=== PATIENT | female | born 1950 | race Caucasian/White ===

== ENCOUNTER → 2016-11-06 | Day surgery (SDC) | payer OTHER, MEDICARE ==
[2016-10-19 13:02] VITALS: Ht 167.6 cm; Wt 105.0 kg
[~2016-11-06] VITALS: Ht 167.6 cm; Wt 105.0 kg
[~2016-11-06] MED LIST: 500ML BSS 0.3ML EPI 1:1000PF IRRIG ONE; ACETAMINOPHEN 325 MG TAB PO PRN; AMVISC PLUS 0.8ML SYRINGE INT OCU ONE; ASPCH81X PO; ATROPINE SULFATE 0.1 MG/ML 5ML SYR IV PRN; BSS FLUSH ONE; EpHEDrine SULFATE INJ 50 MG/ML AMP IV PRN; EpINEphrine INJ 1MG/ML AMP 1 MG/ML AMP ONE; FLUT0.15 INH; LACTATED RINGER'S 1000ML 500 ML IV SCH; LIDOCAINE 3.5% OPH GEL PER APPLICATION CHARGE ONE; LIDOCAINE HCL 1% MPF 2 ML VIAL ONE; METO25TA3 PO; MIDAZOLAM HCL 1 MG/ML 2ML VIAL ONE; OCUCOAT 1 ML SOLN IO ONE; PHENYLEPHRINE HCL 10% OP SOLN PER DROP CHARGE OPL SCH; POVIDONE-IODINE OP SOLN 30 ML BTL ONE; PROPARACAINE 0.5% OP SOLN PER DROP CHARGE OPL SCH; TIMO0.2528 OPB; TOBRAMYCIN/DEXAMETHASONE OPH OINT PER APPLN CHARGE ONE
[2016-11-06] MEDS: PHENYLEPHRINE HCL 2.5% OP SOLN PER DROP CHARGE OPL SCH ×2 (07:02→07:07)
[2016-11-06] MEDS: TROPICAMIDE 1% OP SOLN PER DROP CHARGE OPL SCH ×2 (07:03→07:08)
[2016-11-06] MEDS: CYCLOPENTOLATE HCL 1% OP SOLN PER DROP CHARGE OPL SCH ×2 (07:04→07:09)
[2016-11-06] MEDS: KETOROLAC 0.5% OP SOLN PER DROP CHARGE OPL SCH ×2 (07:05→07:10)
[2016-11-06] MEDS: GATIFLOXACIN OP SOLN PER DROP CHARGE OPL SCH ×2 (07:06→07:16)
--- NOTE | 2016-11-06 07:29 | History & Physical Bridge - [place] ---
H&P Re-Evaluation Bridge Note: I have examined the patient, reviewed the History & Physical and in the interval since the performance of the History & Physical I have noted the following changes of clinical significance: No changes noted
--- NOTE | 2016-11-06 08:18 | Discharge Instructions-SurgCtr ---
Discharge Instructions Date of Service Nov 06, 2016. Visit Reason for Visit: Cataract Left Eye Discharge Discharge Diagnosis / Problem: cataract Discharge Goals Goal(s): Improve function Activity Recommendations Activity Limitations: per Instructions/Follow-up section Anesthesia . Post Anesthesia Instructions: If you have had General Anesthesia or IV Sedation: * Do not drive today. * Resume driving when surgeon permits. * Do not make important decisions or sign legal documents today. * Call surgeon for: 1. Temperature elevations greater than 101 degrees F. 2. Uncontrollable pain. 3. Excessive bleeding. 4. Persistent nausea and vomiting. 5. Medication intolerance (nausea, vomiting or rash). * For nausea and vomiting use only clear liquids such as: tea, soda, bouillon until nausea subsides, then gradually increase diet as tolerated. * If you have any concerns or questions, call your surgeon's office. If physician is unavailable and it is an emergency, call 911 or go to the nearest emergency room. . Instructions / Follow-Up Instructions / Follow-Up ACTIVITY RECOMMENDATIONS: * No strenuous lifting, jogging or running for 4 days * No swimming or yard work for 1 week. * Limited bending is permitted, such as putting on shoes. RETURN TO SCHOOL/WORK: No work until seen by physician in office. MEDICATIONS: Resume previous medications unless instructed otherwise by your surgeon. This includes eye drops for glaucoma. Zymaxid/Gatifloxacin (mendez cap) - one drop every 2 hours until bedtime Nevanac/Ilevro/Prolensa/Ketorolac (joseph cap) - one drop every 4 hours until bedtime Prednisolone (white/pink cap, SHAKE WELL) - one drop every 2 hours until bedtime Starting tomorrow - all 3 drops every 4 hours until seen in the office Optive drops - as needed for discomfort SPECIAL CARE INSTRUCTIONS: * Wear eyeshield when sleeping, for four nights. * You may wear your own glasses or sunglasses while awake. * You may read or watch TV * You may shower and wash your face, but be gentle around the eye and pat dry. * Blurry vision and mild irritation are normal. * Call office if pain is more severe or vision becomes dark at . FOLLOW UP VISIT: Follow-up with Dr De La Rosa tomorrow. Diet Recommendations Home Diet: resume previous diet Procedures Procedures Performed: Left Cataract Phacoemulsification With Intraocular Lens Implant Pending Studies Studies pending at discharge: no Medical Emergencies . Who to Call and When: Medical Emergencies: If at any time you feel your situation is an emergency, please call 911 immediately. . Non-Emergent Contact Non-Emergency issues call your: Apartment Property Manager . . "Provider Documentation" section prepared by Russ De La Rosa.
--- NOTE | 2016-11-06 08:19 | [facility] Operative Report ---
Operative Report Date of Service Nov 06, 2016. Operative Report 1. PREOPERATIVE DIAGNOSIS: Cataract of the left eye. 2. POSTOPERATIVE DIAGNOSIS: Same. 3. PROCEDURE: Phacoemulsification with intraocular lens implantation of the left eye. SURGEON: Dr. Russ De La Rosa. ANESTHESIA: Topical Lidocaine gel, 1% Non- Preserved intracameral Lidocaine, and monitored intravenous sedation. INDICATIONS FOR THE PROCEDURE: The patient is a 65 - year-old female with a history of cataract of the left eye causing significant visual impairment. The details of the proposed procedure were explained to the patient who asked appropriate questions and following discussion of all risks, benefits and alternatives agreed to have the procedure done. 4. OPERATION AND FINDINGS: DESCRIPTION OF PROCEDURE: After informed consent was obtained, the patient was brought to the Operating Room at the [facility]. The patient was placed in a supine position and then the left eye was prepped and draped in the usual sterile fashion for intraocular surgery. A drop of topical Lidocaine gel was placed in the operative eye. A wire lid speculum was then placed in the fornices. A corneal paracentesis was then created temporally. The Non-Preserved Lidocaine was then instilled into the anterior chamber. The anterior chamber was then pressurized with viscoelastic. A 2.0 mm clear corneal incision was then created temporally. A cystotome was inserted into the anterior chamber and used to create a tear in the anterior lens capsule. This capsular tear was then used to create a small flap and the flap was dragged in a counterclockwise direction in order to create a continuous curvilinear capsulorrhexis. Hydrodissection was accomplished with balanced salt solution. Phacoemulsification of the lens nucleus was then performed in a standard [id number] technique. The phaco time was 27 seconds with an average power of 13 %. The remaining cortical material was removed using irrigation aspiration. The capsular bag was then filled with viscoelastic. A Bausch [employer] Lomb MI60L +15.5 diopters lens was then loaded into the injector and injected into the capsular bag. The remaining viscoelastic was removed with the irrigation aspiration handpiece. The wound was hydrated and then checked and found to be watertight. The intraocular pressure was checked and found to be adequate. The wire lid speculum was removed and the patient's face was cleaned and dried. TobraDex ointment was placed in the inferior fornix. The patient was discharged to the Recovery Room having tolerated the procedure well. There were no complications. The patient will be seen tomorrow in the office for follow-up. I attest to the content of the Intraoperative Record and any orders documented therein. Any exceptions are noted below.
[2016-11-06 08:22] VITALS: TEMP 36.4
--- NOTE | 2016-11-06 08:33 | Anesthesia Progress Nt - [facility] ---
Anesthesia Post Op Note Date & Time Nov 06, 2016 at 08:32 Vital Signs Pain Intensity: 0 Vital Signs Past 12 Hours Date Time Temp Pulse Resp B/P Pulse Ox O2 Delivery O2 Flow Rate FiO2 11/06/16 08:22 36.4 59 16 140/82 97 Room Air 11/06/16 06:52 36.4 57 20 148/82 99 Room Air Notes Mental Status: alert / awake / arousable, participated in evaluation Pt Amnestic to Procedure: Yes Nausea / Vomiting: adequately controlled Pain: adequately controlled Airway Patency, RR, SpO2: stable & adequate BP & HR: stable & adequate Hydration State: stable & adequate Anesthetic Complications: no major complications apparent
[2016-11-06 08:43] VITALS: BP 128/80; PULSE 52; O2SAT 98
== END | disposition home or self-care (01) ==
LOC: X.SURG 06:43
PROVIDERS: ATTEND Ophthalmology
DX: H26.9 Unspecified cataract (principal); I42.8 Other cardiomyopathies; I10 Essential (primary) hypertension; M19.90 Unspecified osteoarthritis, unspecified site; E66.9 Obesity, unspecified; Z68.37 Body mass index [BMI] 37.0-37.9, adult; Z90.89 Acquired absence of other organs; Z98.890 Other specified postprocedural states

== ENCOUNTER → 2016-12-04 | Day surgery (SDC) | payer OTHER, MEDICARE ==
[2016-11-14 13:27] VITALS: Ht 167.6 cm; Wt 105.0 kg
[~2016-12-04] VITALS: Ht 167.6 cm; Wt 105.0 kg
[~2016-12-04] MED LIST changes: +ONDANSETRON INJ 2 MG/ML 2 ML VIAL IV PRN; -PHENYLEPHRINE HCL 10% OP SOLN PER DROP CHARGE OPL SCH; +PHENYLEPHRINE HCL 10% OP SOLN PER DROP CHARGE OPR SCH; -PROPARACAINE 0.5% OP SOLN PER DROP CHARGE OPL SCH; +PROPARACAINE 0.5% OP SOLN PER DROP CHARGE OPR SCH
[2016-12-04] MEDS: TROPICAMIDE 1% OP SOLN PER DROP CHARGE OPR SCH ×2 (08:15→08:21)
[2016-12-04] MEDS: PHENYLEPHRINE HCL 2.5% OP SOLN PER DROP CHARGE OPR SCH ×2 (08:15→08:20)
[2016-12-04] MEDS: CYCLOPENTOLATE HCL 1% OP SOLN PER DROP CHARGE OPR SCH ×2 (08:16→08:22)
[2016-12-04] MEDS: KETOROLAC 0.5% OP SOLN PER DROP CHARGE OPR SCH ×2 (08:17→08:23)
[2016-12-04] MEDS: GATIFLOXACIN OP SOLN PER DROP CHARGE OPR SCH ×2 (08:18→08:37)
--- NOTE | 2016-12-04 09:32 | [facility] Operative Report ---
Operative Report Date of Service December 04, 2016. Operative Report 1. PREOPERATIVE DIAGNOSIS: Cataract of the right eye. 2. POSTOPERATIVE DIAGNOSIS: Same. 3. PROCEDURE: Phacoemulsification with intraocular lens implantation of the right eye. SURGEON: Dr. Russ De La Rosa. ANESTHESIA: Topical Lidocaine gel, 1% Non- Preserved intracameral Lidocaine, and monitored intravenous sedation. INDICATIONS FOR THE PROCEDURE: The patient is a 66 - year-old female with a history of cataract of the right eye causing significant visual impairment. The details of the proposed procedure were explained to the patient who asked appropriate questions and following discussion of all risks, benefits and alternatives agreed to have the procedure done. 4. OPERATION AND FINDINGS: DESCRIPTION OF PROCEDURE: After informed consent was obtained, the patient was brought to the Operating Room at the [facility]. The patient was placed in a supine position and then the right eye was prepped and draped in the usual sterile fashion for intraocular surgery. A drop of topical Lidocaine gel was placed in the operative eye. A wire lid speculum was then placed in the fornices. A corneal paracentesis was then created temporally. The Non-Preserved Lidocaine was then instilled into the anterior chamber. The anterior chamber was then pressurized with viscoelastic. A 2.0 mm clear corneal incision was then created temporally. A cystotome was inserted into the anterior chamber and used to create a tear in the anterior lens capsule. This capsular tear was then used to create a small flap and the flap was dragged in a counterclockwise direction in order to create a continuous curvilinear capsulorrhexis. Hydrodissection was accomplished with balanced salt solution. Phacoemulsification of the lens nucleus was then performed in a standard [id number] technique. The phaco time was 27 seconds with an average power of 9 %. The remaining cortical material was removed using irrigation aspiration. The capsular bag was then filled with viscoelastic. A Bausch & Lomb MI60L +17.5 diopters lens was then loaded into the injector and injected into the capsular bag. The remaining viscoelastic was removed with the irrigation aspiration handpiece. The wound was hydrated and then checked and found to be watertight. The intraocular pressure was checked and found to be adequate. The wire lid speculum was removed and the patient's face was cleaned and dried. TobraDex ointment was placed in the inferior fornix. The patient was discharged to the Recovery Room having tolerated the procedure well. There were no complications. The patient will be seen tomorrow in the office for follow-up. I attest to the content of the Intraoperative Record and any orders documented therein. Any exceptions are noted below.
--- NOTE | 2016-12-04 09:32 | Discharge Instructions-SurgCtr ---
Discharge Instructions Date of Service December 04, 2016. Visit Reason for Visit: Cataract Right Eye Discharge Discharge Diagnosis / Problem: cataract Discharge Goals Goal(s): Improve function Activity Recommendations Activity Limitations: per Instructions/Follow-up section Anesthesia . Post Anesthesia Instructions: If you have had General Anesthesia or IV Sedation: * Do not drive today. * Resume driving when surgeon permits. * Do not make important decisions or sign legal documents today. * Call surgeon for: 1. Temperature elevations greater than 101 degrees F. 2. Uncontrollable pain. 3. Excessive bleeding. 4. Persistent nausea and vomiting. 5. Medication intolerance (nausea, vomiting or rash). * For nausea and vomiting use only clear liquids such as: tea, soda, bouillon until nausea subsides, then gradually increase diet as tolerated. * If you have any concerns or questions, call your surgeon's office. If physician is unavailable and it is an emergency, call 911 or go to the nearest emergency room. . Instructions / Follow-Up Instructions / Follow-Up ACTIVITY RECOMMENDATIONS: * No strenuous lifting, jogging or running for 4 days * No swimming or yard work for 1 week. * Limited bending is permitted, such as putting on shoes. RETURN TO SCHOOL/WORK: No work until seen by physician in office. MEDICATIONS: Resume previous medications unless instructed otherwise by your surgeon. This includes eye drops for glaucoma. Zymaxid/Gatifloxacin (mendez cap) - one drop every 2 hours until bedtime Nevanac/Ilevro/Prolensa/Ketorolac (joseph cap) - one drop every 4 hours until bedtime Prednisolone (white/pink cap, SHAKE WELL) - one drop every 2 hours until bedtime Starting tomorrow - all 3 drops every 4 hours until seen in the office Optive drops - as needed for discomfort SPECIAL CARE INSTRUCTIONS: * Wear eyeshield when sleeping, for four nights. * You may wear your own glasses or sunglasses while awake. * You may read or watch TV * You may shower and wash your face, but be gentle around the eye and pat dry. * Blurry vision and mild irritation are normal. * Call office if pain is more severe or vision becomes dark at . FOLLOW UP VISIT: Follow-up with Dr De La Rosa tomorrow. Diet Recommendations Home Diet: resume previous diet Procedures Procedures Performed: Right Cataract Phacoemulsification With Intraocular Lens Implant Pending Studies Studies pending at discharge: no Medical Emergencies . Who to Call and When: Medical Emergencies: If at any time you feel your situation is an emergency, please call 911 immediately. . Non-Emergent Contact Non-Emergency issues call your: Fire Sprinkler Apparatus Inspector . . "Provider Documentation" section prepared by Russ De La Rosa. .
[2016-12-04 09:33] VITALS: TEMP 36.4
--- NOTE | 2016-12-04 09:47 | Anesthesia Progress Nt - [facility] ---
Anesthesia Post Op Note Date & Time December 04, 2016 at 09:48 Vital Signs Pain Intensity: 0 Vital Signs Past 12 Hours Date Time Temp Pulse Resp B/P Pulse Ox O2 Delivery O2 Flow Rate FiO2 12/04/16 09:33 36.4 55 16 147/86 100 Room Air 12/04/16 08:07 36.6 57 16 163/89 99 Room Air Notes Mental Status: alert / awake / arousable, participated in evaluation Pt Amnestic to Procedure: Yes Nausea / Vomiting: adequately controlled Pain: adequately controlled Airway Patency, RR, SpO2: stable & adequate BP & HR: stable & adequate Hydration State: stable & adequate Anesthetic Complications: no major complications apparent
[2016-12-04 09:59] VITALS: BP 144/78; PULSE 53; O2SAT 100
== END | disposition home or self-care (01) ==
LOC: X.SURG 07:43
PROVIDERS: ATTEND Ophthalmology
DX: H26.9 Unspecified cataract (principal); I10 Essential (primary) hypertension; E66.9 Obesity, unspecified; Z68.37 Body mass index [BMI] 37.0-37.9, adult; Z98.42 Cataract extraction status, left eye; Z90.89 Acquired absence of other organs

== ENCOUNTER 2017-01-22 09:02 | Emergency (ER) | payer OTHER, MEDICARE ==
[~2017-01-22] VITALS: Ht 167.6 cm; Wt 104.8 kg
[~2017-01-22 09:02] MED LIST changes: -500ML BSS 0.3ML EPI 1:1000PF IRRIG ONE; -ACETAMINOPHEN 325 MG TAB PO PRN; -AMVISC PLUS 0.8ML SYRINGE INT OCU ONE; -ATROPINE SULFATE 0.1 MG/ML 5ML SYR IV PRN; -BSS FLUSH ONE; -EpHEDrine SULFATE INJ 50 MG/ML AMP IV PRN; -EpINEphrine INJ 1MG/ML AMP 1 MG/ML AMP ONE; -LACTATED RINGER'S 1000ML 500 ML IV SCH; -LIDOCAINE 3.5% OPH GEL PER APPLICATION CHARGE ONE; -LIDOCAINE HCL 1% MPF 2 ML VIAL ONE; -MIDAZOLAM HCL 1 MG/ML 2ML VIAL ONE; -OCUCOAT 1 ML SOLN IO ONE; -ONDANSETRON INJ 2 MG/ML 2 ML VIAL IV PRN; -PHENYLEPHRINE HCL 10% OP SOLN PER DROP CHARGE OPR SCH; -POVIDONE-IODINE OP SOLN 30 ML BTL ONE; -PROPARACAINE 0.5% OP SOLN PER DROP CHARGE OPR SCH; -TOBRAMYCIN/DEXAMETHASONE OPH OINT PER APPLN CHARGE ONE
[2017-01-22 09:08] VITALS: TEMP 37; Ht 167.6 cm; Wt 104.8 kg
--- NOTE | 2017-01-22 10:10 | DIAGNOSTIC IMAGING REPORT ---
LEFT ELBOW 3 VIEWS CLINICAL HISTORY: Fall with left elbow pain. FINDINGS: 3 views of the left elbow are obtained. No prior studies are available for comparison at the time of dictation. The skeletal structures are osteopenic. No fracture is clearly visualized. A small elbow joint effusion is identified. Enthesophytes are noted at the medial humeral epicondyle and at the triceps insertion. Dorsal soft tissue swelling is noted. IMPRESSION: 1. Dorsal soft tissue swelling with no clear fracture identified. 2. A small joint effusion is suspected. This raises concern for occult fracture, statistically likely to involve the radial head in this age group. 3. Osteopenia and mild degenerative change as above. Electronically signed by: Danial Gorman M.D. 01/22/2017 10:08 AM Dictated Date/Time: 01/22/2017 10:05 AM
--- NOTE | 2017-01-22 10:11 | DIAGNOSTIC IMAGING REPORT ---
LEFT SHOULDER 3 VIEWS CLINICAL HISTORY: Fall yesterday with left shoulder injury. FINDINGS: 3 views of the left shoulder are obtained. No prior studies are available for comparison at the time of dictation. The skeletal structures are osteopenic. No fracture or dislocation is seen. Productive degenerative change is identified at the acromioclavicular joint. The glenohumeral articulation is preserved. The overlying soft tissues are within normal limits. The visualized left lung parenchyma appears clear noting left basilar atelectasis. IMPRESSION: 1. No fracture or dislocation is seen in the left shoulder. 2. Osteopenia and mild arthritic change as above. Electronically signed by: Danial Gorman M.D. 01/22/2017 10:09 AM Dictated Date/Time: 01/22/2017 10:08 AM
--- NOTE | 2017-01-22 11:16 | EMERGENCY ROOM VISIT NOTE ---
ED Visit Note First contact with patient: 09:22 CHIEF COMPLAINT: Fall, left shoulder injury yesterday HISTORY OF PRESENT ILLNESS: Patient is a [id number] 66-year-old white female who presents to emergency department for evaluation of left elbow and shoulder pain after a fall yesterday. She slipped on some water on a wet floor yesterday and fell. She tried to catch herself, landed on her flexed right knee , and on her flexed left elbow/forearm. She did not strike her head or lose consciousness, but immediately noted significant discomfort in the left shoulder. She sat on the floor for a few moments, and tried to move the left arm, when she then had the sensation that the left shoulder popped and slid back into place. Afterwards, she states that she could use the shoulder normally, had only some slight stiffness and discomfort with extremes of range of motion. She states that the shoulder became more achy as the day went on. She tried taking aspirin last evening, but had some difficulty sleeping as she was unable to find a position of comfort. She has a history of shoulder bursitis which she treats conservatively. She states that the right knee was slightly sore where she landed on it, and noted some soft tissue swelling, but states that she is able to bear weight and walk without difficulty. She is primarily concerned regarding her left elbow and her left shoulder. She denies any numbness or tingling into the left upper extremity. REVIEW OF SYSTEMS: Review of systems as per HPI. All other systems reviewed were negative. At least 6 systems reviewed. PMH: Electronic medical records are reviewed and summarized as above/below. See Problem List. SOCIAL HISTORY: Patient lives at home. . Retired. PHYSICAL EXAM: Vital Signs: Reviewed nurse's notes. CONSTITUTIONAL: Patient is a pleasant, well-appearing 66-year-old white female who is awake and alert and seated on the gurney in no acute distress. MUSCULOSKELETAL: Examination of the right knee shows some minor soft tissue swelling primarily over the tibial tuberosity. There is no pain or deformity over the patella. No knee joint effusion is palpable. Range of motion is full without ligamentous injury. Examination of the left shoulder does not demonstrate any obvious deformity. She does not have any pain of the clavicle, the acromioclavicular joint or the spine of the scapula. She has some discomfort anterior laterally over the proximal biceps tendon and over the rotator cuff insertion. Possibly she could be internally and externally rotated fully, can be forwarded flexed to 180, and abducted greater than 90, but has pain with range of motion above shoulder height. Good rotator cuff strength testing. Examination of the elbow does not note any obvious deformity. No olecranon bursal effusion appreciated. There is no pain over the proximal radial head. No elbow effusion is palpable. She has full flexion , extension, pronation and supination. EMERGENCY DEPARTMENT COURSE: The patient was seen and assessed as above. Her old records are reviewed. She presents complaining of primarily a left shoulder injury which clinically sounds like a subluxation. Left shoulder and left elbow x-rays were obtained. Shoulder x-rays noted some minor arthritic changes, no evidence for acute fracture or dislocation. Elbow x-rays noted dorsal soft tissue swelling, and a small joint effusion. Concern for an occult fracture, possibly involving the radial head was entertained. The patient was reexamined, she was completely nontender at the elbow, with no pain over the radial head, and given her mechanism of injury, radial head fracture was felt to be less likely as she fell on the flexed elbow. I do not suspect she has an elbow fracture based on her exam. Nonetheless, the patient was given an arm sling to rest both the elbow and the shoulder. Given a subluxation injury, she was encouraged to follow-up with orthopedics for further care and evaluation, given the possible capsular, labral or rotator cuff injury. She declined narcotic analgesia. She was discharged home in good condition. Medication reconciliation: I attest that I have personally reviewed the patient' s current medication list. Blood pressure screening: Patient was found to have an elevated blood pressure and was referred to their primary doctor for recheck and further treatment. She does have a history of hypertension and is currently under treatment. LEFT ELBOW 3 VIEWS CLINICAL HISTORY: Fall with left elbow pain. FINDINGS: 3 views of the left elbow are obtained. No prior studies are available for comparison at the time of dictation. The skeletal structures are osteopenic. No fracture is clearly visualized. A small elbow joint effusion is identified. Enthesophytes are noted at the medial humeral epicondyle and at the triceps insertion. Dorsal soft tissue swelling is noted. IMPRESSION: 1. Dorsal soft tissue swelling with no clear fracture identified. 2. A small joint effusion is suspected. This raises concern for occult fracture, statistically likely to involve the radial head in this age group. 3. Osteopenia and mild degenerative change as above. LEFT SHOULDER 3 VIEWS CLINICAL HISTORY: Fall yesterday with left shoulder injury. FINDINGS: 3 views of the left shoulder are obtained. No prior studies are available for comparison at the time of dictation. The skeletal structures are osteopenic. No fracture or dislocation is seen. Productive degenerative change is identified at the acromioclavicular joint. The glenohumeral articulation is preserved. The overlying soft tissues are within normal limits. The visualized left lung parenchyma appears clear noting left basilar atelectasis. IMPRESSION: 1. No fracture or dislocation is seen in the left shoulder. 2. Osteopenia and mild arthritic change as above. Problem List Medical Problems: (1) Acute chest pain Status: Resolved (2) Asbestos exposure Status: Chronic (3) Bronchospasm, acute Status: Resolved (4) Elevated troponin Status: Resolved (5) Essential (Primary) Hypertension Status: Chronic (6) Hypoxemia Status: Resolved (7) Hypoxia Status: Resolved Surgical Problems: (1) History of appendectomy Status: Resolved (2) History of carpal tunnel release Status: Resolved (3) History of cataract extraction Status: Resolved (4) History of cholecystectomy Status: Resolved (5) History of tonsillectomy Status: Resolved Current/Historical Medications Scheduled Aspirin (Aspirin Chewable), 81 MG PO QAM Metoprolol Succ (Toprol Xl) (Toprol-Xl), 0.5 TAB PO QAM Timolol Maleate 0.25% Oph (Timoptic 0.25% Oph), 1 DROP OPB QAM Scheduled PRN Fluticasone Propionate (Nasal) (Flonase Allergy Relief), 1 SPRAY INH DAILY PRN for PRN Allergies Coded Allergies: NO KNOWN DRUG ALLERGIES (Verified Allergy, Unknown, ., 12/04/16) Nickel (Verified Allergy, Unknown, EARS GET SOAR IF WEAR NICKELS, 01/22/17) Vital Signs Date Time Temp Pulse Resp B/P (MAP) Pulse Ox O2 Delivery O2 Flow Rate FiO2 01/22/17 11:25 71 16 144/90 98 01/22/17 10:22 74 18 168/89 98 Room Air 01/22/17 09:08 37.0 72 16 190/97 97 Room Air Departure Information Impression Primary Impression: Shoulder subluxation, left Additional Impressions: Left elbow contusion Fall Referrals Chris Mckay M.D. (PCP) Zafar Marlow D.O. Patient Instructions [facility] Additional Instructions Ibuprofen(Motrin, Advil) may be used for fever or pain. Use 600mg every six hours as needed. Take with food. Avoid using more than 2400mg in a 24 hour period. Do not use 2400mg per day for more than three consecutive days without physician direction. Prolonged inappropriate use can lead to stomach upset or ulcers. This medication can be taken if you need to drive, work, or perform activities which may be dangerous when taking narcotic pain medication. (AND/OR) Acetaminophen(Tylenol) may be used for fever or pain. Use 1000mg every six hours as needed. Avoid using more than 3000mg in a 24 hour period. This medication can be taken if you need to drive, work, or perform activities which may be dangerous when taking narcotic pain medication. Ice compresses for 20 minutes at a time four times daily for 2-3 days. Use the sling as instructed. Remove your arm from the sling 4-6 times a day and move all the joints around to keep them loose. Rest and elevate your injury. Continue current medications. Return to the ER immediately for any numbness, tingling, severe pain, extreme swelling in the extremity or as needed. Follow-up with [facility] or your primary care physician for further care and evaluation of your left shoulder injury. Problem Qualifiers
[2017-01-22 11:25] VITALS: BP 144/90; PULSE 71; O2SAT 98
== END 2017-01-22 11:28 | disposition home or self-care (01) ==
LOC: C.EDB 09:04
DX: S43.002A Unspecified subluxation of left shoulder joint, initial encounter (principal); S50.02XA Contusion of left elbow, initial encounter; I10 Essential (primary) hypertension; Z79.82 Long term (current) use of aspirin; Z79.899 Other long term (current) drug therapy; W01.0XXA Fall on same level from slipping, tripping and stumbling without subsequent striking against object, initial encounter; Z87.09 Personal history of other diseases of the respiratory system

== ENCOUNTER 2019-01-07 04:44 | Observation (INO) ==
--- OUTSIDE RECORDS SUMMARY | 2019-01-07 04:47 | External Medical Summary | Continuity of Care Document ---
:1950 Author Name Ishan Lanier Address Unavailable Unavailable , Care Team Providers Name Role Phone Unavailable Unavailable Unavailable OESTERLING, R Unavailable Unavailable Unavailable Unavailable Unavailable Problems Carpal tunnel syndrome (354.0) (G56.00) Encounter for routine gynecological examination (V72.31) (Z0 1.419) Cervical polyp (622.7) (N84.1) Asymptomatic Postmenopausal Status (V49.81) Allergies and Adverse Reactions No Known Allergies (Allergy) Medications Lumigan 0.01 % Ophthalmic Solution , M.D. Refills: 0 Procedures History of Cholecystectomy Status: Compl eted History of Oral Surgery Tooth Extraction Status: Completed History of Tonsillectomy Status: Complet ed History of Appendectomy Status: Complete d Immunizations Immunizations not documented Social History - Smoking Status Unknown if ever smoked Plan of Treatment Planned Observations Planned Goals not documented Results No Known Results Results not documented
[2019-01-07 05:17] LABS: Basophils # (auto) 0.04 K/uL (0-0.2); Basophils % (auto) 0.6 %; Eosinophils # (auto) 0.48 K/uL (0-0.5); Eosinophils % (auto) 7.1 %; Hematocrit (blood only) 37.9 % (37-47); Hemoglobin 12.8 g/dL (12.0-16.0); Immature Granulocytes # (auto) 0.01 K/uL (0.00-0.02); Immature Granulocytes % (auto) 0.1 %; Lymphocytes # (auto) 1.49 K/uL (1.2-3.4); Lymphocytes % (auto) 22.1 %; Mean Corpuscular Hgb Conc 33.8 g/dL (32-36); Mean Corpuscular Volume 86.9 fL (80-100); Mean Platelet Volume 10.8 fL (7.4-10.4); Monocytes # (auto) 0.36 K/uL (0.11-0.59); Monocytes % (auto) 5.3 %; Neutrophils # (auto) 4.35 K/uL (1.4-6.5); Neutrophils % (auto) 64.8 %; Platelet Count 211 K/uL (130-400); RDW Coefficient of Variation 13.2 % (11.5-14.5); RDW Standard Deviation 42.1 fL (36.4-46.3); Red Blood Count 4.36 M/uL (4.2-5.4); White Blood Count 6.73 K/uL (4.8-10.8)
[2019-01-07 05:30] LABS: Partial Thromboplastin Time 26.2 Seconds (21.0-31.0); Prothrombin Time 10.3 Seconds (9.0-12.0)
[2019-01-07 05:36] LABS: Alanine Aminotransferase 24 U/L (12-78); Albumin Level 3.7 gm/dl (3.4-5.0); Aspartate Aminotransferase 14 U/L (15-37); BUN Creatinine Ratio 18.4 (10-20); Blood Urea Nitrogen 19 mg/dl (7-18); Calcium 8.6 mg/dl (8.5-10.1); Carbon Dioxide 28 mmol/L (21-32); Chloride 106 mmol/L (98-107); Creatinine Clr Calc Pharmacy 61.7 ml/min; Est GFR (African American) 62.3; Est GFR (Non-African American) 53.8; Glucose 109 mg/dl (70-99); Magnesium 2.2 mg/dl (1.8-2.4); Potassium 3.9 mmol/L (3.5-5.1); Sodium 139 mmol/L (136-145)
[2019-01-07 05:39] LABS: iSTAT Hemoglobin 11.9 g/dl (12.0-16.0); iSTAT Ionized Calcium 1.12 mmol/l (1.12-1.32); iSTAT Potassium 3.8 mEq/L (3.3-5.0)
[2019-01-07 05:41] LABS: Albumin Globulin Ratio 0.9 (0.9-2); Alkaline Phosphatase 91 U/L (45-117); Bilirubin,Total 0.4 mg/dl (0.2-1); Total Protein 7.7 gm/dl (6.4-8.2); Troponin I < 0.015 ng/ml (0-0.045)
[2019-01-07] MEDS ORDERED: OPTIRAY 320 125ml IV PRN (06:06)
--- NOTE | 2019-01-07 06:15 | Emergency Department Note ---
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 The patient states that she does not have full sensation of her hand beginning at 3 am when she thought her hand was falling asleep. She notes that movement did not help ease the feeling. She states that she is able to still move her fingers and grab stuff but she is unable to do such in a manner that she normally does. Of note the patient has had previous carpal tunnel surgery in the right hand. The patient denies trouble walking, history of irregular heartbeat, and any other symptoms. Patient admits to taking 324 mg of aspirin under her tongue at approximately 3 AM today. Home Medications Home Medications Medication Instructions Recorded Confirmed Type lisinopril 20 mg PO DAILY 01/07/19 01/07/19 History metoprolol succinate 12.5 mg PO DAILY 01/07/19 01/07/19 History timolol maleate 1 drp OPB QAM 01/07/19 01/07/19 History Allergies Allergy/AdvReac Type Severity Reaction Status Date / Time nickel Allergy Unknown EARS GET Verified 01/07/19 06:45 SOAR IF WEAR NICKELS No Known Drug Allergies Allergy Unknown . Verified 01/07/19 06:45 Past Med/Surg History Medical History No pertinent past medical history Social History Feels Safe at Home: Yes Smoking Status: Never smoker Review of Systems See HPI for pertinent positives & negatives. and A total of 10 systems reviewed and were otherwise negative Physical Exam Vital Signs Vital Signs - 24 hr 01/07/19 04:48 01/07/19 05:07 01/07/19 06:32 Temperature 36.8 C Temperature Source Oral Sepsis Recent Fever Within 48 Hours No Sepsis Action Taken by Nursing No Action Required Pulse Rate 63 Pulse Rate [Apical] 57 L Respiratory Rate 20 16 Respiratory Effort / Characteristics Non-Labored Respiratory Depth Normal Blood Pressure 165/102 H Blood Pressure [Left Arm] 149/94 H Blood Pressure Mean 123 Blood Pressure Mean [Left Arm] 112 Blood Pressure Position Sitting Pulse Oximetry 97 94 95 Oxygen Delivery Method Room Air Room Air Room Air Vital signs reviewed. General: Elderly, obese, Well-appearing, in no significant distress. HEENT: No scleral icterus, PERRLA, neck supple. Atraumatic. Cardiovascular: Regular rate and rhythm, no extra sounds. Pulmonary: Clear to auscultation bilaterally, normal work of breathing. Abdomen: Soft, nontender, nondistended, positive bowel sounds. Musculoskeletal: Atraumatic, no peripheral edema. Neurologic: Patient awake alert and oriented x 3, full strength in all 4 extre mities. Cranial nerves 2 through 12 grossly intact. 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 Skin: Warm, dry, no rash Course 0506:The patient was evaluated in room B04B. A complete history and physical exam was performed. Administered Medications Ioversol (Optiray 320 125ml) 125 ml IV ONCE PRN PRN Reason: Interaction Checking Stop: 01/11/19 06:05 Last Admin: 01/07/19 06:06 Dose: 118 ml Documented by: [id number] Medical Decision Making Differential Diagnosis Differential includes acute coronary syndrome, myocardial infarction, CVA, TIA, anemia, infection, pneumonia, UTI, pyelonephritis, poor nutrition, dehydration, electrolyte disturbance,hypoglycemia. Medical Records Attestation: I reviewed the patient's medical records. Home Medications Current Medication List: was personally reviewed by me Laboratory Data Attestation: I reviewed the patient's lab results. Result diagrams: 01/07/19 05:08 01/07/19 05:08 Lab Results 01/07/19 01/07/19 01/07/19 Range/Units 04:59 05:08 05:08 WBC 6.73 (4.8-10.8) K/uL RBC 4.36 (4.2-5.4) M/uL Hgb 12.8 (12.0-16.0) g/dL POC Hgb (12.0-16.0) g/dl Hct 37.9 (37-47) % POC Hct (37-47) % MCV 86.9 (80-100) fL MCH 29.4 (25-34) pg MCHC 33.8 (32-36) g/dL RDW Std Deviation 42.1 (36.4-46.3) fL RDW Coeff of Ted 13.2 (11.5-14.5) % Plt Count 211 (130-400) K/uL MPV 10.8 H (7.4-10.4) fL Immature Gran % (Auto) 0.1 % Neut % (Auto) 64.8 % Lymph % (Auto) 22.1 % [place] % (Auto) 5.3 % Eos % (Auto) 7.1 % Baso % (Auto) 0.6 % Immature Gran # (Auto) 0.01 (0.00-0.02) K/uL Neut # (Auto) 4.35 (1.4-6.5) K/uL Lymph # (Auto) 1.49 (1.2-3.4) K/uL [place] # (Auto) 0.36 (0.11-0.59) K/uL Eos # (Auto) 0.48 (0-0.5) K/uL Baso # (Auto) 0.04 (0-0.2) K/uL PT 10.3 (9.0-12.0) Seconds INR 1.0 (0.9-1.1) APTT 26.2 (21.0-31.0) Seconds PTT Ratio 1.0 POC Sodium (135-144) mEq/L Sodium (136-145) mmol/L POC Potassium (3.3-5.0) mEq/L Potassium (3.5-5.1) mmol/L POC Chloride (101-112) mEq/L Chloride (98-107) mmol/L Carbon Dioxide (21-32) mmol/L POC Total CO2 (24-31) mEq/l Anion Gap (3-11) POC Anion Gap (16-25) mmol/L POC BUN (7-18) mg/dl BUN (7-18) mg/dl Creatinine (0.6-1.2) mg/dl POC Creatinine (0.6-1.3) mg/dl Est Cr Clr Drug Dosing ml/min Est GFR ( Amer) Est GFR (Non-Af Amer) BUN/Creatinine Ratio (10-20) Glucose (70-99) mg/dl POC Glucose 115 H (70-99) POC Glucose (other) (70-99) mg/dl Calcium (8.5-10.1) mg/dl POC Ioniz Calcium Eric (1.12-1.32) mmol/l Magnesium (1.8-2.4) mg/dl Total Bilirubin (0.2-1) mg/dl AST (15-37) U/L ALT (12-78) U/L Alkaline Phosphatase (45-117) U/L Troponin I (0-0.045) ng/ml Total Protein (6.4-8.2) gm/dl Albumin (3.4-5.0) gm/dl Globulin (2.5-4.0) gm/dl Albumin/Globulin Ratio (0.9-2) 01/07/19 01/07/19 Range/Units 05:08 05:22 WBC (4.8-10.8) K/uL RBC (4.2-5.4) M/uL Hgb (12.0-16.0) g/dL POC Hgb 11.9 L (12.0-16.0) g/dl Hct (37-47) % POC Hct 35 L (37-47) % MCV (80-100) fL MCH (25-34) pg MCHC (32-36) g/dL RDW Std Deviation (36.4-46.3) fL RDW Coeff of Ted (11.5-14.5) % Plt Count (130-400) K/uL MPV (7.4-10.4) fL Immature Gran % (Auto) % Neut % (Auto) % Lymph % (Auto) % [place] % (Auto) % Eos % (Auto) % Baso % (Auto) % Immature Gran # (Auto) (0.00-0.02) K/uL Neut # (Auto) (1.4-6.5) K/uL Lymph # (Auto) (1.2-3.4) K/uL [place] # (Auto) (0.11-0.59) K/uL Eos # (Auto) (0-0.5) K/uL Baso # (Auto) (0-0.2) K/uL PT (9.0-12.0) Seconds INR (0.9-1.1) APTT (21.0-31.0) Seconds PTT Ratio POC Sodium 139 (135-144) mEq/L Sodium 139 (136-145) mmol/L POC Potassium 3.8 (3.3-5.0) mEq/L Potassium 3.9 (3.5-5.1) mmol/L POC Chloride 102 (101-112) mEq/L Chloride 106 (98-107) mmol/L Carbon Dioxide 28 (21-32) mmol/L POC Total CO2 23 L (24-31) mEq/l Anion Gap 5.0 (3-11) POC Anion Gap 19.0 (16-25) mmol/L POC BUN 20 H (7-18) mg/dl BUN 19 H (7-18) mg/dl Creatinine 1.05 (0.6-1.2) mg/dl POC Creatinine 1.0 (0.6-1.3) mg/dl Est Cr Clr Drug Dosing 61.7 ml/min Est GFR ( Amer) 62.3 Est GFR (Non-Af Amer) 53.8 BUN/Creatinine Ratio 18.4 (10-20) Glucose 109 H (70-99) mg/dl POC Glucose (70-99) POC Glucose (other) 114 H (70-99) mg/dl Calcium 8.6 (8.5-10.1) mg/dl POC Ioniz Calcium Eric 1.12 (1.12-1.32) mmol/l Magnesium 2.2 (1.8-2.4) mg/dl Total Bilirubin 0.4 (0.2-1) mg/dl AST 14 L (15-37) U/L ALT 24 (12-78) U/L Alkaline Phosphatase 91 (45-117) U/L Troponin I < 0.015 (0-0.045) ng/ml Total Protein 7.7 (6.4-8.2) gm/dl Albumin 3.7 (3.4-5.0) gm/dl Globulin 4.0 (2.5-4.0) gm/dl Albumin/Globulin Ratio 0.9 (0.9-2) Imaging Data Radiologist's Impression: Radiology results as stated below per my review and the radiologist's interpretation: CT head/brain wo con CT DOSE: HISTORY: Mental status change Stroke evaluation TECHNIQUE: Multiaxial CT images of the head were performed without the use of intravenous contrast. A dose lowering technique was utilized adhering to the principles of ALARA. Comparison: None. Findings: Mild mucosal thickening of all major sinuses. The mastoid air cells are clear. Density characteristics indicate a component of age-related atrophy as well as chronic small vessel change. There is no acute intracranial hemorrhage. The ventricular system is midline. The calvarium and skull base are intact. The ventricles and sulci are within normal limits. There is no mass, hematoma, midline shift, or acute infarct. Impression: No acute intracranial abnormality. Age-related chronic small vessel change. The above report was generated using voice recognition software. It may contain grammatical, syntax or spelling errors. Electronically signed by: Aaron Donaldson M.D. 01/07/2019 6:23 AM Dictated: 01/07/19619 Transcribed: 01/07/19619 CT angio head w con CLINICAL HISTORY: Acute stroke TECHNIQUE: CT angiography of the head was performed in a dynamic helical fashion during intravenous administration of 118 cc of Optiray 320. MIP imaging was performed. A dose lowering technique was utilized adhering to the principles of ALARA. CT DOSE: COMPARISON STUDY: No previous studies for comparison. FINDINGS: There are no lesion suspicious for aneurysm. There are no major intracranial branch occlusions. The dural venous sinuses appear patent. Note is made of prominent periorbital vessels, as well as a prominent right inferomedial frontal lobe branch vessel. There is pansinus disease. IMPRESSION: 1. No evidence of aneurysm. No evidence of major intracranial branch occlusion or stenosis. 2. Prominent periorbital vessels as well as a prominent right inferomedial frontal lobe branch vessel Electronically signed by: Anibal Middleton M.D. 01/07/2019 6:42 AM Dictated: 01/07/19636 Transcribed: 01/07/19636 CT angio neck with con CLINICAL HISTORY: Acute stroke COMPARISON STUDY: No previous studies for comparison. TECHNIQUE: CT angiography was performed from the aortic arch to the skull base. MIP imaging was performed. The patient was scanned in a dynamic helical fashion during intravenous administration of 118 cc of Optiray 320. A dose lowering technique was utilized adhering to the principles of ALARA. CT DOSE: 1227.47 mGy.cm Technique: CT angiogram of the carotid and vertebral arteries was obtained using intravenous contrast and 3-D reconstruction. NASCET criteria was utilized. Findings: There is mild dilatation of the ascending thoracic aorta which measures 42 mm the level the main pulmonary artery. The right carotid revealed no evidence of aneurysm and no evidence of dissection. There is no evidence of hemodynamic significant stenosis. The left carotid revealed no evidence of hemodynamic significant stenosis. There is no evidence of aneurysm. There is no evidence of dissection. The carotid arteries are tortuous with a retropharyngeal course. There is no evidence of hemodynamically significant vertebral stenosis. There is no evidence of vertebral dissection. Incidental note is made of paranasal sinus inflammatory changes. IMPRESSION: 1. No evidence of hemodynamically significant carotid or vertebral artery stenosis. No evidence of dissection. 2. Aneurysmal dilatation of the ascending thoracic aorta measuring 42 mm. Electronically signed by: Anibal Middleton M.D. 01/07/2019 6:36 AM Dictated: 01/07/19631 Transcribed: 01/07/19631 ECG Data Attestation: I personally reviewed and interpreted this ECG as follows: Indication: weakness Rate (beats per minute): 62 Rhythm: normal sinus Findings: + other (poor baseline, QTC 432); no acute ischemic change and no ectopy Blood Pressure Blood Pressure Findings: Elevated blood pressure Blood Pressure Disposition: further management by hospitalist MDM Narrative This patient was evaluated and appeared to be in no significant distress. Phys ical examination is significant for only very mild ataxia in the right upper extremity on [id number]. It is unclear at this time if this perceived weakness is related to a peripheral nerve distribution or if this could represent a small CVA. Patient has no other deficit associated. CT scan of the head was performed and is negative for acute process. Patient is noted to have a pansinusitis which she states she was told many years ago to begin Flonase, the patient held off due to glaucoma concerns. CT angiogram of the head and neck were performed and reveal chronic vascular change but no acute occlusion. Patient's exam remains stable on my reevaluation. Laboratory work and EKG are r eassuring. Patient was informed of the findings and will be evaluated by the hospitalist service for further evaluation of potential stroke. She certainly does not meet any criteria for TPA at this time. Patient is aware of the plan and agrees. 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 I confirm that the note above accurately reflects all work, treatment, procedures, and medical decision making performed by me.
--- NOTE | 2019-01-07 06:24 | CT Scan Report ---
CT head/brain wo con CT DOSE: HISTORY: Mental status change Stroke evaluation TECHNIQUE: Multiaxial CT images of the head were performed without the use of intravenous contrast. A dose lowering technique was utilized adhering to the principles of ALARA. Comparison: None. Findings: Mild mucosal thickening of all major sinuses. The mastoid air cells are clear. Density characteristics indicate a component of age-related atrophy as well as chronic small vessel c hange. There is no acute intracranial hemorrhage. The ventricular system is midline. The calvarium an d skull base are intact. The ventricles and sulci are within normal limits. There is no mass, hematom a, midline shift, or acute infarct. Impression: No acute intracranial abnormality. Age-related chronic small vessel change. The above report was generated using voice recognition software. It may contain grammatical, syntax or spelling errors. Electronically signed by: Aaron Donaldson M.D. 01/07/2019 6:23 AM
--- NOTE | 2019-01-07 06:37 | CT Scan Report ---
CT angio neck with con CLINICAL HISTORY: Acute stroke COMPARISON STUDY: No previous studies for comparison. TECHNIQUE: CT angiography was performed from the aortic arch to the skull base. MIP imaging was perfo rmed. The patient was scanned in a dynamic helical fashion during intravenous administration of 118 c c of Optiray 320. A dose lowering technique was utilized adhering to the principles of ALARA. CT DOSE: 1227.47 mGy.cm Technique: CT angiogram of the carotid and vertebral arteries was obtained using intravenous contrast and 3-D reconstruction. NASCET criteria was utilized. Findings: There is mild dilatation of the ascending thoracic aorta which measures 42 mm the level the main pulm onary artery. The right carotid revealed no evidence of aneurysm and no evidence of dissection. There is no evidenc e of hemodynamic significant stenosis. The left carotid revealed no evidence of hemodynamic significant stenosis. There is no evidence of an eurysm. There is no evidence of dissection. The carotid arteries are tortuous with a retropharyngeal course. There is no evidence of hemodynamically significant vertebral stenosis. There is no evidence of verte bral dissection. Incidental note is made of paranasal sinus inflammatory changes. IMPRESSION: 1. No evidence of hemodynamically significant carotid or vertebral artery stenosis. No evidence of di ssection. 2. Aneurysmal dilatation of the ascending thoracic aorta measuring 42 mm. Electronically signed by: Anibal Middleton M.D. 01/07/2019 6:36 AM
--- NOTE | 2019-01-07 06:44 | CT Scan Report ---
CT angio head w con CLINICAL HISTORY: Acute stroke TECHNIQUE: CT angiography of the head was performed in a dynamic helical fashion during intravenous a dministration of 118 cc of Optiray 320. MIP imaging was performed. A dose lowering technique was util ized adhering to the principles of ALARA. CT DOSE: COMPARISON STUDY: No previous studies for comparison. FINDINGS: There are no lesion suspicious for aneurysm. There are no major intracranial branch occlusi ons. The dural venous sinuses appear patent. Note is made of prominent periorbital vessels, as well a s a prominent right inferomedial frontal lobe branch vessel. There is pansinus disease. IMPRESSION: 1. No evidence of aneurysm. No evidence of major intracranial branch occlusion or stenosis. 2. Prominent periorbital vessels as well as a prominent right inferomedial frontal lobe branch vessel Electronically signed by: Anibal Middleton M.D. 01/07/2019 6:42 AM
[2019-01-07] MEDS ORDERED: ASPIRIN 81 MG CHEW PO STA (06:46)
--- NOTE | 2019-01-07 08:16 | History & Physical Report ---
Date of Service January 07, 2019 Assessment & Plan (1) RUE weakness: Acute in setting of prior CTS s/p repair. She denies numbness or paresthesias which may have occurred if this were simply a compression neuropathy from sleeping on her arm funny. No other acute stroke like symptoms are present and she states the weakness is improved. Examination reveals normal hand vice president lending and weakness with finger spread suggesting intact C8, but possibly affected T1 innervation. MRI brain and TTE to complete the workup. EKG reveals NSR but placed on telemetry to ensure no occult arrythmia. Neuro consulted. NPO until passes dysphagia screening. PT/OT/Speech consults placed. (2) HTN (hypertension): slightly elevated diastolic pressure in ER. May be situational. Cont to monitor. Lisinopril held while patient NPO. (3) DVT prophylaxis: SCDs Full Code as discussed with the patient on admission. Dispo-telemetry Nichole Jeff DO [facility] Hospitalist History of Present Illness Chief Complaint: Right hand weakness Primary Care Provider: Chris Mckay MD 68-year-old female without history of stroke presented with acute onset of right hand weakness in the ulnar side of the hand at a proximally 3:00 this morning. It did not wake her up from sleep and she denies any issues with numbness or tingling but she was up at this time at night and noted a difference. She reports her right upper extremity feeling heavy and she reported having difficulty holding/gripping objects. It appeared more difficult for her to have strong thumb opposition to fourth and fifth finger. She has a history of carpal tunnel in this wrist status post carpal tunnel release surgery and has not had any issues related to carpal tunnel syndrome since that time. She does sleep on the right/affected side regularly. She denies any recent neck pain or shoulder issues. She has no decreased range motion in the cervical spine and Spurling's maneuver is negative. She denies any neck trauma. She reports an increased in visual aura recently, specifically happening twice in the last week. These are not associated with headaches and she has no history of migraines. She denies any current headaches, visual changes aside from chronic changes secondary to cataract surgery, confusion, speech difficulties, facial droop, difficulties moving her arms and legs or walking. She is educated on signs of stroke and stuck her tongue out in the mirror to ensure it was not de viated to one side. She subsequently took an aspirin at home out of concern for stroke. Symptoms did not resolve quickly and this prompted ER visit. Since being in the ER she feels her weakness is improving. ROS otherwise reveals an emergence of "sciatica" in her lower extremities. She otherwise denies any chest pain, shortness of breath, fevers, chills, changes in bowels including no blood per rectum or diarrhea, abdominal pain or symptoms. She did mention some left lower extremity swelling that occurred after a flight from [place] and had this evaluated with ultrasound which was negative for DVT. Since that time her left lower extremity has normalized and no swelling is present. Allergies Allergy/AdvReac Type Severity Reaction Status Date / Time nickel Allergy Unknown EARS GET Verified 01/07/19 06:45 SOAR IF WEAR NICKELS No Known Drug Allergies Allergy Unknown . Verified 01/07/19 06:45 Home Medications Home Medications Medication Instructions Recorded Confirmed Type aspirin 325 mg PO DAILY PRN 01/07/19 01/07/19 History lisinopril 10 mg PO DAILY 01/07/19 01/07/19 History metoprolol succinate 12.5 mg PO DAILY 01/07/19 01/07/19 History timolol maleate 1 drp OPB QAM 01/07/19 01/07/19 History Past Med/Surg History Medical History Chronic rhinitis Essential hypertension H/O melanoma in situ No pertinent past medical history Osteoarthritis Takotsubo cardiomyopathy Surgical History H/O carpal tunnel repair S/P appy S/P rajni Social History Preferred Language: Polish Communication Ability: Effective Beliefs That Will Affect Care: None Current Living Situation: Spouse Other Information That Helps Us Care for You: No Feels Safe at Home: Yes Safety Concerns: Feels Safe At This Time Smoking Status: Never smoker Hx Alcohol Use: Yes (one glass wine daily) Hx Substance Use: No Review of Systems Review of Systems: At least ten systems were reviewed and negative except as indicated in HPI above. Physical Exam Physical Exam: CONSTITUTIONAL: WNWD, vitals as above, generally well- appearing EYES: EOMI bilaterally, PERRL, normal conjunctivae, no scleral icterus ENT: oropharynx clear RESPIRATORY: clear to auscultation bilaterally, no crackles, rales or wheezes, normal respiratory effort CARDIOVASCULAR: regular rate and rhythm, S1 and 2 heard without murmurs, gallops or rubs, no JVD, no peripheral edema GASTROINTESTINAL: normal bowel sounds, soft, nontender, nondistended MUSCULOSKELETAL: strength 5/5 throughout, head is normocephalic and atraumatic CERVICAL SPINE: ROM normal in all planes of motion, Spurling's test negative with axial load. No paraspinal cervical or trap muscle TTP. ARMS: Normal shoulder ROM on the right. No pronator drift with forward flexion of arms. Deltoid/shoulder abduction strength intact bilaterally. HAND: normal vice president lending strength bilaterally, weakness R>L with finger spread SKIN: warm and dry NEUROLOGIC: BR and patellar DTR both 2/4 bilaterally, PERRL, EOMI, no facial palsy, no dysarthria. CN 2-12 intact, no sensory deficit, normal cognition, normal speech, no tremor, Finger to nose intact, Rosita intact, Romberg negative PSYCHIATRIC: alert cooperative and oriented to person, place and time. Euthymic mood, makes good eye contact, language grossly intact Results & Data Vital Signs (Past 12 Hours) Vital Signs Temp Pulse Pulse Resp BP BP Pulse Ox 01/07/19 06:32 57 L 16 149/94 H 95 01/07/19 05:07 94 01/07/19 04:48 36.8 C 63 20 165/102 H 97 Laboratory Results Short CBC 01/07/19 Range/Units 05:08 WBC 6.73 (4.8-10.8) K/uL Hgb 12.8 (12.0-16.0) g/dL Hct 37.9 (37-47) % Plt Count 211 (130-400) K/uL BMP 01/07/19 05:08 Sodium 139 Potassium 3.9 Chloride 106 Carbon Dioxide 28 BUN 19 H Creatinine 1.05 Glucose 109 H Calcium 8.6 Cardiac Enzymes 01/07/19 Range/Units 05:08 Troponin I < 0.015 (0-0.045) ng/ml Liver Function 01/07/19 Range/Units 05:08 Total Bilirubin 0.4 (0.2-1) mg/dl AST 14 L (15-37) U/L ALT 24 (12-78) U/L Alkaline Phosphatase 91 (45-117) U/L Albumin 3.7 (3.4-5.0) gm/dl Diagnostic Findings CT angio head w con FINDINGS: There are no lesion suspicious for aneurysm. There are no major intracranial branch occlusions. The dural venous sinuses appear patent. Note is made of prominent periorbital vessels, as well as a prominent right inferomedial frontal lobe branch vessel. There is pansinus disease. IMPRESSION: 1. No evidence of aneurysm. No evidence of major intracranial branch occlusion or stenosis. 2. Prominent periorbital vessels as well as a prominent right inferomedial frontal lobe branch vessel CT angio neck with con There is mild dilatation of the ascending thoracic aorta which measures 42 mm the level the main pulmonary artery The right carotid revealed no evidence of aneurysm and no evidence of dissection. There is no evidence of hemodynamic significant stenosis. The left carotid revealed no evidence of hemodynamic significant stenosis. There is no evidence of aneurysm. There is no evidence of dissection. The carotid arteries are tortuous with a retropharyngeal course. There is no evidence of hemodynamically significant vertebral stenosis. There is no evidence of vertebral dissection. Incidental note is made of paranasal sinus inflammatory changes. IMPRESSION: 1. No evidence of hemodynamically significant carotid or vertebral artery stenosis. No evidence of dissection. 2. Aneurysmal dilatation of the ascending thoracic aorta measuring 42 mm. --- CT head/brain wo con Findings: Mild mucosal thickening of all major sinuses. The mastoid air cells are clear. Density characteristics indicate a component of age-related atrophy as well as chronic small vessel change. There is no acute intracranial hemorrhage. The ventricular system is midline. The calvarium and skull base are intact. The ventricles and sulci are within normal limits. There is no mass, hematoma, midline shift, or acute infarct. Impression: No acute intracranial abnormality. Age-related chronic small vessel change. Code Status & VTE Plan Code Status Full VTE Prophylaxis Plan VTE Prophylaxis will be ordered: Yes Critical Care Time Critical Care Time: No
[2019-01-07] MEDS ORDERED: PHARMACIST DISCHARGE MED REC CONSULT PRN (10:01)
[2019-01-07] MEDS ORDERED: SODIUM CHLORIDE 0.9% 1000ML 1,000 ML IV SCH (10:01)
[2019-01-07] MEDS ORDERED: ONDANSETRON INJ 2 MG/ML 2 ML VIAL IV PRN (10:01)
[2019-01-07] MEDS ORDERED: SODIUM CHLORIDE 0.9% 500 ML IV SCH (13:15)
--- NOTE | 2019-01-07 13:34 | Neurology Consultation ---
Date of Consultation January 07, 2019 Assessment & Plan (1) RUE weakness: 1. CTA head and neck - aneurysmal dilation should be followed up and monitored as outpatient as well as prominent periorbital vessels 2. TTE- 60-65% 3. MRI brain left frontoparietal infarct , MRI c cspine no nerve involvement 4. PT/OT speech for any discharge needs- no obvious needs 5. optimize HTN, HLD, DM LDL <70 6. continue aspirin 81 mg for add plavix 75 mg x 21 days then aspirin 81 mg for a lifetime 7. ZIO as outpatient follow up with neurology Preethi Flores [facility] 4-6 weeks -requested Supervising Physician Co-Signing Physician Notes I have seen and discussed above patient with Dr Preethi Vasquez, neurology. Pt seen and examined, images reviewed.Pt with htn, hx RF, resolved Takutsubo' cardiomyopathy. Pt awakened in middle of night with R hand clumsiness and weakness. No headache, no CN sx or rle sx. No headache, although pt has acephalgic migrainous visual phenomenon which she had 2 day prior. Exam reveals no cn abnl, speech or language dysfunction. R hand is very mildly diffusely weak, not respecting a peripheral nerve or root distribution. There is +/- R drift with mildly decreased R GILBERTO. no sensory abnl, minimal clumsiness RUE. Imp L fronto-parietal cortical infarct, no carotid or intracranial stenosis. Raises question of possible embolic event. P asa, plavix x 3 weeks then asa, statin, cardiac monitoring, with Ziopath as outpt if inpt monitoring not revealing. Dr Sellers will follow in am. FRANCISCO Vasquez MD History of Present Illness Reason for Consultation: stroke like symptoms Requesting Physician: Nichole Jeff DO Attending Physician: Nichole Jeff DO History of Present Illness Martha is a 68 year old female with PMH HTN who presented with acute onset of right hand weakness in the ulnar side of the hand at a proximally 3:00 this morning. She reports her right upper extremity feeling heavy and she reported having difficulty holding/gripping objects. She has a history of carpal tunnel in this wrist status post carpal tunnel release surgery and has not had any issues related to carpal tunnel syndrome since that time but does sleep on her right side. She has no decreased range motion in the cervical spine and Spurling's maneuver is negative but she does have tenderness with the muscle on right. She does get ocular migraines and had one Saturday but no arm involvement. She is educated on signs of stroke and stuck her tongue out in the mirror to ensure it was not deviated to one side. She subsequently took an aspirin at home out of concern for stroke. Symptoms did not resolve quickly and this prompted ER visit but was improving in the ER. She does have a history of "sciatica" left LE. She did mention some left lower extremity swelling that occurred after a flight from [place] and had this evaluated with ultrasound which was negative for DVT. Since that time her left lower extremity has normalized and no swelling is present. denies CP, SOB, abdominal pain current headache or visual changes, one sided weakness numbness tingling, N, V, Allergies Allergy/AdvReac Type Severity Reaction Status Date / Time nickel Allergy Unknown EARS GET Verified 01/07/19 06:45 SOAR IF WEAR NICKELS No Known Drug Allergies Allergy Unknown . Verified 01/07/19 06:45 Home Medications Home Medications Medication Instructions Recorded Confirmed Type aspirin 325 mg PO DAILY PRN 01/07/19 01/07/19 History lisinopril 10 mg PO DAILY 01/07/19 01/07/19 History metoprolol succinate 12.5 mg PO DAILY 01/07/19 01/07/19 History timolol maleate 1 drp OPB QAM 01/07/19 01/07/19 History Patient History Medical History Chronic rhinitis Essential hypertension H/O melanoma in situ No pertinent past medical history Osteoarthritis Takotsubo cardiomyopathy Surgical History H/O carpal tunnel repair S/P appy S/P rajni Social History Preferred Language: [place] Communication Ability: Effective Beliefs That Will Affect Care: None Current Living Situation: Spouse Other Information That Helps Us Care for You: No Feels Safe at Home: Yes Safety Concerns: Feels Safe At This Time Smoking Status: Never smoker Hx Alcohol Use: Yes (one glass wine daily) Hx Substance Use: No Physical Exam Physical Exam: Physical Exam: Constitutional: appearance over nourished, healthy Ears, Nose, Mouth and Throat: mucous membranes moist, no injection and skin normal, eyes normal Cardiovascular: normal S-1 and S-2 and regular rate and rhythm Respiratory: clear to auscultation (CTA) and no rales, rhonchi or wheeze Musculoskeletal: no peripheral edema and good distal pulses Skin: no stigmata of neurocutaneous disease noted and normal and intact Eyes: extraocular muscles intact (EOMI) and pupils equal, round and reactive to light (PERRL) NEUROLOGIC EXAMINATION: Mental status: Alert and interactive Oriented to full date and location Oriented to person Speech fluent with no evidence of aphasia Cranial Nerves smile eye brow raise symmetric, tongue midline Reflexes: Deep tendon reflexes were symmetrical and graded 2/5. Sensory: no sensory deficits Coordination: Romberg absent Gait/Stance: Posture normal. Gait normal: with steady with steps, base, turning tandem gait. Motor: Negative for pronator drift of out stretched arms with eyes closed. 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 left 5/5 right 4th and 5th digit weakness, ulnar deviation left hand machine maintenance repairer, wrist ext 4/5, 5/5, hip flex patellar flex ext 5/5 Results & Data Vital Signs (Past 12 Hours) Vital Signs Temp Pulse Pulse Pulse Pulse Resp BP 01/07/19 12:00 36.5 C 59 L 18 01/07/19 10:01 36.5 C 66 16 01/07/19 06:32 57 L 16 01/07/19 05:07 01/07/19 04:48 36.8 C 63 20 165/102 H BP BP Pulse Ox 01/07/19 12:00 158/78 H 97 01/07/19 10:01 121/78 98 01/07/19 06:32 149/94 H 95 01/07/19 05:07 94 01/07/19 04:48 97 Diagnostic Findings CTA neck-No evidence of hemodynamically significant carotid or vertebral artery stenosis. No evidence of dissection. Aneurysmal dilatation of the ascending thoracic aorta measuring 42 mm. CTA head- No evidence of aneurysm. No evidence of major intracranial branch occlusion or stenosis. Prominent periorbital vessels as well as a prominent right inferomedial frontal lobe branch vessel CT head- No acute intracranial abnormality. Age-related chronic small vessel change. TTE 60-65% no ASD MRI brain- Small acute left frontoparietal infarct which accounts for the patient's symptoms. No mass effect. No hemorrhage. Moderate sinusitis.
--- NOTE | 2019-01-07 14:48 | Magnetic Resonance Report ---
MRI OF THE BRAIN WITHOUT CONTRAST CLINICAL HISTORY: Right hand numbness and weakness. Evaluate for stroke. COMPARISON STUDY: Head CT and CTA of the head January 07, 2019. TECHNIQUE: Utilizing a 1.5 Nusrat magnet and dedicated coil, multiplanar, multiecho imaging of the bra in was performed without IV contrast. FINDINGS: Note is made of a small focus of restricted diffusion within the posterior left frontal lob e and anterior left parietal lobe that measures 1.4 x 0.5 cm. This has no mass effect. There is no he morrhage. Ventricular system is unremarkable for age. Basilar cisterns are patent. There are no extra -axial collections. Flow-voids for the major intracranial vessels are present. White matter T2 hyperi ntense foci suggest small vessel disease. There is also secretions with air-fluid levels within the s phenoid sinuses. There is moderate ethmoid and left frontal sinus mucosal thickening. There is mild b ilateral maxillary sinus mucosal thickening. No intracranial masses identified on this unenhanced exa m. A T1 and T2 hypointense focus within the occipital bones is probably benign. This corresponds to a sclerotic focus on CT. There is mild dural thickening. IMPRESSION: 1. Small acute left frontoparietal infarct which accounts for the patient's symptoms. No mass effect. No hemorrhage. 2. Moderate sinusitis. Electronically signed by: Dionicio Ko M.D. 01/07/2019 2:46 PM
--- NOTE | 2019-01-07 15:10 | Magnetic Resonance Report ---
MRI OF THE CERVICAL SPINE WITHOUT CONTRAST CLINICAL HISTORY: Right arm weakness. Evaluate for spine involvement. COMPARISON: None. TECHNIQUE: Utilizing a 1.5 Nusrat magnet and dedicated coil, multiplanar, multiecho imaging of the ce rvical spine was performed without IV contrast. FINDINGS: There is straightening of the normal cervical lordosis. There is no suspicious marrow replacement. Th ere is a hemangioma within the C4 vertebral body. Cervical cord signal and caliber are normal. The MR I of the brain will be reported separately. There is no intracanalicular mass or fluid collection. Pa ravertebral soft tissues are unremarkable. Mild multilevel degenerative changes are present. C2-C3: The central canal and neural foramen are patent. C3-C4: The central canal is patent. There is mild left neural foraminal stenosis. The right neural f oramen is patent. C4-C5: A small left paracentral disc protrusion indents the ventral aspect of the cord. There is no cord signal abnormality. Neural foramen are patent. C5-C6: The central canal and neural foramen are patent. C6-C7: The central canal and neural foramen are patent. C7-T1: The central canal and neural foramen are patent. IMPRESSION: 1. Mild multilevel degenerative disc disease and facet arthrosis. Small left paracentral disc protrus ion at C4-C5 that indents the ventral aspect of the cord. Normal cervical cord signal and caliber. 2. Mild multilevel neural foraminal stenosis. Electronically signed by: Dionicio Ko M.D. 01/07/2019 3:08 PM
[2019-01-07] MEDS ORDERED: CLOPIDOGREL BISULFATE 75 MG TAB PO ONE (16:16)
[2019-01-07] MEDS ORDERED: LISINOPRIL 10 MG TAB PO SCH (17:30)
[2019-01-07] MEDS ORDERED: METOPROLOL SUCC 25MG EXT REL TAB PO SCH (17:30)
[2019-01-07] MEDS ORDERED: ASPIRIN 81 MG ECTAB PO STA (18:11)
[2019-01-07] MEDS ORDERED: TIMOLOL MALEATE 0.25% OP SOLN 5 ML BTL OPB SCH (18:30)
[2019-01-07] MEDS: ATORVASTATIN 40 MG TAB PO SCH (19:12)
[2019-01-08 06:33] LABS: Basophils # (auto) 0.03 K/uL (0-0.2); Basophils % (auto) 0.4 %; Eosinophils % (auto) 5.7 %; Hematocrit (blood only) 36.4 % (37-47); Hemoglobin 12.3 g/dL (12.0-16.0); Immature Granulocytes # (auto) 0.01 K/uL (0.00-0.02); Immature Granulocytes % (auto) 0.1 %; Lymphocytes # (auto) 1.07 K/uL (1.2-3.4); Lymphocytes % (auto) 15.4 %; Mean Corpuscular Hgb Conc 33.8 g/dL (32-36); Mean Corpuscular Volume 87.3 fL (80-100); Mean Platelet Volume 10.5 fL (7.4-10.4); Monocytes # (auto) 0.47 K/uL (0.11-0.59); Monocytes % (auto) 6.7 %; Neutrophils # (auto) 4.99 K/uL (1.4-6.5); Neutrophils % (auto) 71.7 %; Platelet Count 199 K/uL (130-400); RDW Coefficient of Variation 13.2 % (11.5-14.5); Red Blood Count 4.17 M/uL (4.2-5.4); White Blood Count 6.97 K/uL (4.8-10.8)
[2019-01-08 07:02] LABS: BUN Creatinine Ratio 17.4 (10-20); Calcium 8.8 mg/dl (8.5-10.1); Creatinine Clr Calc Pharmacy 69.6 ml/min; Est GFR (African American) 72.2; Est GFR (Non-African American) 62.3; Potassium 4.2 mmol/L (3.5-5.1)
[2019-01-08] MEDS: ATORVASTATIN 40 MG TAB PO SCH (07:32)
[2019-01-08 08:05] LABS: Estimated Average Glucose 114 mg/dl; Hemoglobin A1C 5.6 % (4.5-5.6)
[2019-01-08] MEDS ORDERED: ASPIRIN 81 MG ECTAB PO SCH (09:00)
[2019-01-08] MEDS ORDERED: CLOPIDOGREL BISULFATE 75 MG TAB PO SCH (09:00)
[2019-01-08] MEDS ORDERED: STROKE PATIENT DISCHARGE STA (11:32)
--- NOTE | 2019-01-08 11:47 | Discharge Summary ---
Date of Service January 08, 2019 Admission HPI Per Admitting Provider 68-year-old female without history of stroke presented with acute onset of right hand weakness in the ulnar side of the hand at a proximally 3:00 this morning. It did not wake her up from sleep and she denies any issues with numbness or tingling but she was up at this time at night and noted a difference. She reports her right upper extremity feeling heavy and she reported having difficulty holding/gripping objects. It appeared more difficult for her to have strong thumb opposition to fourth and fifth finger. She has a history of carpal tunnel in this wrist status post carpal tunnel release surgery and has not had any issues related to carpal tunnel syndrome since that time. She does sleep on the right/affected side regularly. She denies any recent neck pain or shoulder issues. She has no decreased range motion in the cervical spine and Spurling's maneuver is negative. She denies any neck trauma. She reports an increased in visual aura recently, specifically happening twice in the last week. These are not associated with headaches and she has no history of migraines. She denies any current headaches, visual changes aside from chronic changes secondary to cataract surgery, confusion, speech difficulties, facial droop, difficulties moving her arms and legs or walking. She is educated on signs of stroke and stuck her tongue out in the mirror to ensure it was not deviated to one side. She subsequently took an aspirin at home out of concern for stroke. Symptoms did not resolve quickly and this prompted ER visit. Since being in the ER she feels her weakness is improving. ROS otherwise reveals an emergence of "sciatica" in her lower extremities. She otherwise denies any chest pain, shortness of breath, fevers, chills, changes in bowels including no blood per rectum or diarrhea, abdominal pain or symptoms. She did mention some left lower extremity swelling that occurred after a flight from [place] and had this evaluated with ultrasound which was negative for DVT. Since that time her left lower extremity has normalized and no swelling is present. Admission Exam Per Admitting Provider CONSTITUTIONAL: WNWD, vitals as above, generally well-appearing EYES: EOMI bilaterally, PERRL, normal conjunctivae, no scleral icterus ENT: oropharynx clear RESPIRATORY: clear to auscultation bilaterally, no crackles, rales or wheezes, normal respiratory effort CARDIOVASCULAR: regular rate and rhythm, S1 and 2 heard without murmurs, gallops or rubs, no JVD, no peripheral edema GASTROINTESTINAL: normal bowel sounds, soft, nontender, nondistended MUSCULOSKELETAL: strength 5/5 throughout, head is normocephalic and atraumatic CERVICAL SPINE: ROM normal in all planes of motion, Spurling's test negative with axial load. No paraspinal cervical or trap muscle TTP. ARMS: Normal shoulder ROM on the right. No pronator drift with forward flexion of arms. Deltoid/shoulder abduction strength intact bilaterally. HAND: normal mess attendant strength bilaterally, weakness R>L with finger spread SKIN: warm and dry NEUROLOGIC: BR and patellar DTR both 2/4 bilaterally, PERRL, EOMI, no facial palsy, no dysarthria. CN 2-12 intact, no sensory deficit, normal cognition, normal speech, no tremor, Finger to nose intact, Rosita intact, Romberg negative PSYCHIATRIC: alert cooperative and oriented to person, place and time. Euthymic mood, makes good eye contact, language grossly intact Principal Diagnosis acute stroke Discharge Data Allergies Allergy/AdvReac Type Severity Reaction Status Date / Time nickel Allergy Unknown EARS GET Verified 01/07/19 06:45 SOAR IF WEAR NICKELS No Known Drug Allergies Allergy Unknown . Verified 01/07/19 06:45 Consultations 01/07/19 07:06 ED Decision to Admit Stat 01/07/19 10:01 Consult Case Management - Discharge Planning Routine Consult Neurology Routine Ordered Studies 01/07/19 04:53 CT head/brain wo con Urgent 01/07/19 05:12 CT angio head w con Urgent CT angio neck with con Urgent 01/07/19 10:01 MR brain wo con Routine 01/07/19 13:46 MR cervical spine wo con Routine Hospital Course (1) Stroke: (2) HTN (hypertension): She was admitted to the hospitalist service and placed on telemetry. An tihypertensives were held to allow for permissive hypertension. Neurology was consulted. An echocardiogram was ordered revealing an ejection fraction 60 to 65% with mild concentric left ventricular hypertrophy. Injection of contrast documented no intra-atrial shunt. A brain MRI was ordered revealing a small acute left frontoparietal infarct which accounts for the patient's symptoms. There was no mass-effect and no hemorrhage. An MRI of the cervical spine was also ordered. This revealed mild multilevel degenerative disc disease and facet arthrosis. There is a small left paracentral disc protrusion at C4-C5 that indents the ventral aspect of the cord. There was normal cervical cord signal and caliber. There was mild multilevel neuroforaminal stenosis present. Neurology recommended continuation of baby aspirin indefinitely with the addition of Plavix for 21 days. Additional work-up with a ZIO Patch (14-day event monitor) was also recommended to complete the arrhythmia work-up. She remained in sinus rhythm on telemetry during her hospitalization. Other notable work-ups included a CTA of the neck which revealed an aneurysmal dilation of the ascending thoracic aorta measuring 42 mm. Close follow-up by primary care doctor is recommended for monitoring this. Patient was evaluated by speech pathology, PT and OT. Symptoms had resolved by the next day she was mentating ambulating at baseline and tolerating p.o. at time of discharge. She was hemodynamically stable and afebrile and sent home in stable condition with close primary care follow-up recommended. Total Time Total Time Spent Total Time Spent (In Minutes): 60 Total Time Includes: Examination of the Patient, Discharge Planning, Medication Reconciliation and Communication With Other Providers Discharge Plan Discharge Items Patient Disposition: Home - Self-Care Reason For Visit: STROKE LIKE SYMPTOMS Discharge Diagnosis: acute stroke Discharge Goals: Improve disease control Activity: Resume your previous activity Non-emergency contact: Primary Care Provider Call non-emergency contact if: you have any medication questions, your symptoms worsen, your pain is not controlled, your pain is worsening, your pain is unusual for you and you have a fever Follow-up/Referrals: Chris Mckay MD [Primary Care Provider] - Diet: Low Sodium (2gm) Addtl Provider Instructions: Please take all medications as prescribed on discharge list below. It is appropriate to restart your LISINOPRIL and METOPROLOL tomorrow to allow permissive hypertension with the 48 hour window post-stroke. You will continue taking ASPIRIN 81mg ("baby" aspirin) every day indefinitely. You will need to take CLOPIDOGREL ("Plavix) for 3 weeks and then stop. It is recommended that you follow-up with your primary care provider within one week of discharge. 01/15/2019 9:40 AM Farrukh Young MD [facility] To complete the stroke workup a 14-day event monitor ("Zio patch") is recommended to ensure there are no underlying heart arrythmias that may have caused your stroke. This can be obtained from your primary care provider at follow-up. It was a pleasure taking care of you! Please call if you have any questions or problems. You can reach a [facility] hospitalist on duty at [facility] 24 hours a day by calling [phone]. Take care of yourself. Nichole Jeff, [facility] Hospitalist Prescriptions: New clopidogrel 75 mg Tablet 75 mg PO QAM Qty: 20 RF: 0 atorvastatin 40 mg Tablet 40 mg PO QAM Qty: 30 RF: 1 aspirin [Ecotrin Low Strength] 81 mg Tablet,Delayed Release (Dr/Ec) 81 mg PO QAM Qty: 90 RF: 1 Continued lisinopril 10 mg tablet 10 mg PO DAILY RF: 0 metoprolol succinate 25 mg tablet extended release 24 hr 12.5 mg PO DAILY RF: 0 timolol maleate 0.5 % drops 1 drp OPB QAM RF: 0 Discontinued aspirin 325 mg Tablet 325 mg PO DAILY PRN (Reason: arthritis pain) RF: 0 Stand-Alone Forms: Medications to Prevent Stroke, My [facility]/Other Patient Handouts: Clopidogrel Bisulfate Oral tablet Discharge Orders: Discharge Order (Routine); Ordered 01/08/19 Ordered By: Nichole Jeff Admission Data Admit Date/Time: 01/07/19 08:16 Attending Provider: Nichole Jeff Admit Provider: Nichole Jeff Primary Care Provider: Chris Mckay Other Providers: Jorge Luis Gutiérrez Kathleen Service: Telemetry Other Interventions: Discharge Summary Assessment (RN) Last Done: 01/08/19 11:35 DC Date/Time DO NOT enter until pt leaves facility: 01/08/19 12:54
--- NOTE | 2019-01-08 12:20 | Pharmacy Report ---
Pharmacist Stroke Counseling - Date of Service January 08, 2019 - Scope: Pharmacy has been consulted to provide medication discharge counseling for this patient admitted with ischemic stroke as per the Pharmacist Discharge Counseling for Stroke Patients Protocol. - Medications on Discharge: Home Medications Medication Instructions Recorded Confirmed lisinopril 10 mg PO DAILY 01/07/19 01/07/19 metoprolol succinate 12.5 mg PO DAILY 01/07/19 01/07/19 timolol maleate 1 drp OPB QAM 01/07/19 01/07/19 New Rx's Medication Instructions Recorded aspirin [Ecotrin Low Strength] 81 mg PO QAM #90 tab 01/08/19 atorvastatin 40 mg PO QAM #30 tab 01/08/19 clopidogrel 75 mg PO QAM #20 tab 01/08/19 - Action: The above medications, specifically ones for stroke treatment/prophylaxis, have been reviewed in detail with the patient and/or patient traveling representative(s) prior to discharge. This includes indication, common adverse reactions, drug interactions, and medication administration. Medication counseling has been employed using the teach-back method to ensure understanding. - Outcome: The patient and/or patient traveling representative(s) have demonstrated understanding of the medications. Please note, they are aware that the pharmacist will call them within 72 hours post-discharge to confirm that the appropriate medications are being taken and answer any further medication related questions the patient might have at that time. Contact information Individual to be contacted: Patient Relationship to patient (if applicable): n/a Phone number: [phone] Best time to call: 7 am - 9 pm; patient will be in [place] Additional comments: Mrs. Swain was very pleasant to speak with today. She was familiar with atorvastatin as her takes this medication. We discussed why she was starting on this medication as well as side effects and time to take, grapefruit interactions. Discussed change in aspirin dosage to 81 mg daily, previous aspirin use was for arthritis. She did ask about using aspirin as a pain reliever in addition to the daily aspirin, discussed alternatives (tylenol, doesn't help as much), increased risk of bleeding while on the plavix combination and should not use while on plavix. Please reiterate this. Discussed she would only be on the plavix for 21 days, last day should be January 27. Then if she was going to use aspirin for pain relief be sure not to exceed recommended dosages, short durations. She had no further questions. If she doesn't answer says to leave a message and she will call back. Thank you for allowing pharmacy to be involved in the care of this patient. Please call [phone] with any additional questions
[2019-01-08] MEDS ORDERED: TIMOLOL MALEATE 0.5% OP SOLN 5 ML BTL OPB SCH (19:00)
--- NOTE | 2019-01-12 10:00 | Pharmacy Report ---
Pharmacist Post D/C Phone Note - Phone Note: Date of phone call: January 12, 2019. The patient and/or patient graphic art sales representative(s) were unable to be reached for a follow-up phone call within the 72 hour time frame. Discharge counseling pharmacist contact information has already been provided to the patient should questions arise. Thank you for allowing us to be involved in the care of this patient. - Home Medications: Home Medications Medication Instructions Recorded Confirmed lisinopril 10 mg PO DAILY 01/07/19 01/07/19 metoprolol succinate 12.5 mg PO DAILY 01/07/19 01/07/19 timolol maleate 1 drp OPB QAM 01/07/19 01/07/19 New Rx's Medication Instructions Recorded aspirin [Ecotrin Low Strength] 81 mg PO QAM #90 tab 01/08/19 atorvastatin 40 mg PO QAM #30 tab 01/08/19 clopidogrel 75 mg PO QAM #20 tab 01/08/19
== END 2019-01-08 12:54 | disposition home or self-care (01) ==
LOC: 2S 04:44 → ED 04:44 → 2S 08:57